=== PATIENT | male | born 1960 | race Caucasian/White ===

== ENCOUNTER 2024-07-26 12:59 | Emergency (ER) | payer OTHER, SELFPAY ==
[2024-07-26 13:01] VITALS: BP 154/87
[2024-07-26 13:40] VITALS: BMI 28.7
--- NOTE | 2024-07-26 14:18 | ED.GENMED ---
History of Present Illness
General
Chief Complaint: Head Injury
Source: patient
Exam Limitations: none
Time Seen by Provider: 07/26/24 13:49
History of Present Illness
History of Present Illness:
63-year-old male presents with laceration to superior scalp. He was pushing his boat with the hands trolley and he fell forward hitting a piece of metal on the boat on the head. He noted a laceration to his scalp and complains of neck pain. He
states he saw stars but did not lose consciousness. No anticoagulants. No other complaints
Phy Exam
Physical Exam
Physical Exam:
General: Well-appearing male nontoxic no acute respiratory distress
HEENT: Normocephalic 4 cm laceration superior scalp oriented in the front to back direction. Pupils equal round reactive to light
Neurologic exam: Alert and oriented conversing appropriately no facial asymmetry
Musculoskeletal exam: Mild diffuse tenderness about the cervical spine
Course
Orders/Labs/Results
Orders:
Orders
07/26/24 13:56
CT Cervical Spine W/o Iv Contr Urgent
Comment:
Reason For Exam: fall
CT Head W/o Iv Contrast Urgent
Comment:
Reason For Exam: fall
Tetanus/Diphth/Acelpertussis [Adacel] 0.5 ml IM .ONCE ONE
Vital Signs
Initial and Last Documented VS:
Initial Vital Signs
Temp Pulse Resp BP Pulse Ox
98.1 F 95 16 154/87 98
07/26/24 13:01 07/26/24 13:01 07/26/24 13:01 07/26/24 13:01 07/26/24 13:01
Last Documented Vital Signs
Temp Pulse Resp BP Pulse Ox
98.1 F 95 16 154/87 98
07/26/24 13:01 07/26/24 13:01 07/26/24 13:01 07/26/24 13:01 07/26/24 13:01
Procedures
Laceration Closure
Superior Scalp:
Status of Wound: clean
Description of Wound Edges: sharp
Preparation: cleaned with saline
Anesthesia: 1% Lidocaine with epi
Revision/Debridement: routine- no revision
Wound exploration: explored to base- no FB
Type of Closure: single layer closure and running stitch
Skin Closure Material: 4-0 prolene
Number of sutures: 11
MDM/Problems Addressed
Differential Diagnosis Includes:
Laceration superior scalp. This was cleansed with saline anesthetized with 1% lidocaine with epinephrine and closed in a running fashion using 4-0 Prolene sutures. A total of 11 sutures were required. Patient has some headache and neck pain after
a fall. CT of head and cervical spine pending to evaluate for fracture or intracranial bleed tetanus update ordered
*Critical Care Note
Total Time (30-74mins, 75-104mins- exclusive of procedures): Not Applicable
Update Note
Update Note:
CT of head and cervical spine both negative for acute traumatic injury. Patient reassured. Antibacterial and placed on wound stable for discharge
ED Attending Note
-
Portions of this chart may have been created with voice recognition software.� Occasional wrong word or��sound alike� substitutions may have occurred due to the inherent limitations of voice recognition software.
Discharge Plan
Departure
Patient Disposition: Home (Routine Discharge)
Date of Disposition: 07/26/24
Time of Disposition: 16:56
Patient with high blood pressure during this ER visit?: No
Discharge Problem:
Laceration
Instructions: Laceration Repair With Stitches (DC)
Referrals:
Aruna Hsieh CRNP [Family Provider] -
Activity Restrictions/Additional Instructions:
Have sutures removed in 7 to 10 days. You may ice to the sore spot. Apply antibacterial Emon daily. Use Tylenol or ibuprofen for pain
Interventions
Interventions:
*Risk Screen - Suicide Last Done: 07/26/24 13:41
*General Assessment Last Done: 07/26/24 13:41
*Neglect/Abuse Screening Last Done: 07/26/24 13:41
ED- Fall Risk Assessment Last Done: 07/26/24 13:40
*ED COVID-19 Vaccine History Last Done: 07/26/24 13:41
ED- Neurological Assessment Last Done: 07/26/24 13:40
ED-Skin Assessment Last Done: 07/26/24 13:42
Discharge Date and Time
Print Language: GREEK
[2024-07-26] MEDS: ADACEL 0.5 ML IM (14:20)
[2024-07-26 17:06] VITALS: BP 145/78
== END 2024-07-26 17:06 | disposition home or self-care (01) ==
LOC: EMR 12:59
PROVIDERS: EMERGENCY PHYSICIAN Emergency Medicine; FAMILY PHYSICIAN Nurse Practitioner Adult Health
DX: S01.01XA Laceration without foreign body of scalp, initial encounter (principal); W01.118A Fall on same level from slipping, tripping and stumbling with subsequent striking against other sharp object, initial encounter; Z23 Encounter for immunization
CPT/HCPCS: 99284; 12002; 90471; 70450; 72125; 90715